=== PATIENT | female | born 1970 | race Two or more races ===

== ENCOUNTER 2023-08-09 17:37 | Emergency (ER) | payer OTHER ==
--- NOTE | 2023-08-09 19:22 | ED ---
General Adult HPI - General Source: patient, RN notes reviewed <Yulia Hannah - Last Filed: 08/09/23 19:19> <Renetta Corea - Last Filed: 08/09/23 20:36> - General Stated complaint: nose injury Time Seen by Provider: 08/09/23 19:19 - History of Present Illness Initial comments: 53 year old female presents to the emergency department for chief complaint of dog bite. Patient states that her friend just got a dog and she bent over to grab the toy. The dog bit her on the nose. The dog had a rabies vaccine in January 2022. Patient has a laceration across the bridge of her nose. (Yulia Hannah) 53-year-old female presenting with chief complaint of dog bite. Patient states that her friend discovered a new dog, the dog bit her on the nose this evening. There is a 3 cm laceration across the bridge of the nose. Bleeding is well- controlled at this time. The dog is up-to-date on vaccinations. Patient states that her last tetanus shot was over 10 years ago. No other injuries. (Renetta Corea) - Related Data Previous Rx's Medication Instructions Recorded Amoxic-Pot Clav 875-125Mg 1 tab PO Q12HR 10 Days #20 tab 08/09/23 [Augmentin 875-125] Allergies Allergy/AdvReac Type Severity Reaction Status Date / Time No Known Allergies Allergy Verified 08/09/23 19:23 Review of Systems ROS Other: All systems not noted in ROS Statement are negative. <Yulia Hannah - Last Filed: 08/09/23 19:19> ROS Other: All systems not noted in ROS Statement are negative. <Renetta Corea - Last Filed: 08/09/23 20:36> ROS Statement: Those systems with pertinent positive or pertinent negative responses have been documented in the HPI. General Exam <Yulia Hannah - Last Filed: 08/09/23 19:19> Limitations: no limitations General appearance: alert, in no apparent distress Head exam: Present: normocephalic Eye exam: Present: normal appearance, EOMI Neck exam: Present: normal inspection, full ROM Respiratory exam: Absent: respiratory distress Neurological exam: Present: alert, oriented X3 Psychiatric exam: Present: normal affect, normal mood Expanded Type of lesion: Present: laceration (3 cm laceration across the bridge of the nose secondary to dog bite) <Renetta Corea - Last Filed: 08/09/23 20:36> - General Exam Comments Initial Comments: Visual Physical Exam Vital signs reviewed General: Well-appearing, nontoxic, no acute distress. Head: Normocephalic, atraumatic Eyes: PERRLA, EOMI ENT: Airway patent Chest: Nonlabored breathing Skin: No visual rash, normal skin tone Neuro: Alert and oriented 3 Musculoskeletal: No gross abnormalities (Yulia Hannah) Course Vital Signs 08/09/23 19:20 Temperature 98.1 F Pulse Rate 67 Respiratory 18 Rate Blood Pressure 153/85 O2 Sat by Pulse 99 Oximetry Procedures - Laceration Laceration #1 Consent Obtained: verbal consent Indication: laceration Site: face Size (cm): 3 Description: linear Depth: simple, single layer Anesthetic Used: lidocaine 1%, without epi Anesthesia Technique: local infiltration Pre-repair: wound explored, irrigated extensively Type of Sutures: nylon Size of Sutures: 5-0 Number of Sutures: 3 Technique: simple, interrupted Patient Tolerated Procedure: well <Renetta Corea - Last Filed: 08/09/23 20:36> Medical Decision Making <Yulia Hannah - Last Filed: 08/09/23 19:19> <Renetta Corea - Last Filed: 08/09/23 20:36> - Medical Decision Making I preformed the quick note portion of this chart. Electronically signed by Yulia Hannah PA-C. (Yulia Hannah) Was pt. sent in by a medical professional or institution (LIZZY Martin, FISHING GUIDE, urgent care, hospital, or prison...) When possible be specific @ -No Did you speak to anyone other than the patient for history (EMS, parent, family, police, friend...)? What history was obtained from this source @ -No Did you review nursing and triage notes (agree or disagree)? Why? @ -I reviewed and agree with nursing and triage notes Were old charts reviewed (outside hosp., previous admission, EMS record, old EKG, old radiological studies, urgent care reports/EKG's, prison records)? Report findings @ -No old charts were reviewed Differential Diagnosis (chest pain, altered mental status, abdominal pain women, abdominal pain men, vaginal bleeding, weakness, fever, dyspnea, syncope, headache, dizziness, GI bleed, back pain, seizure, CVA, palpatations, mental health, musculoskeletal)? @ -not applicable EKG interpreted by me (3pts min.). @ -As above X-rays interpreted by me (1pt min.). @ -None done CT interpreted by me (1pt min.). @ -None done U/S interpreted by me (1pt. min.). @ -None done What testing was considered but not performed or refused? (CT, X-rays, U/S, labs)? Why? @ -None What meds were considered but not given or refused? Why? @ -None Did you discuss the management of the patient with other professionals (prof hdz i.eElizabet Martin, PA, FISHING GUIDE, lab, RT, psych nurse, social sciences instructor, juvenile justice officer, teacher, aoc [employer] operations staff officer, comp field case manager)? Give summary @ -No Was smoking cessation discussed for >3mins.? @ -No Was critical care preformed (if so, how long)? @ -No Were there social determinants of health that impacted care today? How? (Homelessness, low income, unemployed, alcoholism, drug addiction, transportation, low edu. Level, literacy, decrease access to med. care, senior living, rehab)? @ -No Was there de-escalation of care discussed even if they declined (Discuss DNR or withdrawal of care, Hospice)? DNR status @ -No What co-morbidities impacted this encounter? (DM, HTN, Smoking, COPD, CAD, Cancer, CVA, ARF, Chemo, Hep., AIDS, mental health diagnosis, sleep apnea, morbid obesity)? @ -None Was patient admitted / discharged? Hospital course, mention meds given and route, prescriptions, significant lab abnormalities, going to OR and other pertinent info. @ -53-year-old female presenting with chief complaint of dog bite to the nose. There is a 3 cm laceration across the bridge of the nose. Her tetanus is updated today. Laceration is repaired, see procedure note for details. She started on Augmentin. Educated on wound care and signs of infection. Follow-up with PCP. Report back to ER with any new or worsening symptoms. Discussed return parameters and answered all questions. Patient conveyed verbal understanding and agreed to the plan. I discussed this case in detail with my attending Dr. Naranjo Undiagnosed new problem with uncertain prognosis? @ -No Drug Therapy requiring intensive monitoring for toxicity (Heparin, Nitro, Insulin, Cardizem)? @ -No Were any procedures done? @ -Laceration repair Diagnosis/symptom? @ - dog bite Acute, or Chronic, or Acute on Chronic? @ -Acute Uncomplicated (without systemic symptoms) or Complicated (systemic symptoms)? @ -Uncomplicated Side effects of treatment? @ -No Exacerbation, Progression, or Severe Exacerbation? @ -No Poses a threat to life or bodily function? How? (Chest pain, [place], NH, pneumonia, PE, COPD, DKA, ARF, appy, cholecystitis, CVA, Diverticulitis, Homicidal, Suicidal, threat to staff... and all critical care pts) @ -No (Renetta Corea) Disposition <Yulia Hannah - Last Filed: 08/09/23 19:19> Is patient prescribed a controlled substance at d/c from ED?: No Time of Disposition: 20:02 <Renetta Corea - Last Filed: 08/09/23 20:36> Clinical Impression: Dog bite, Facial laceration Disposition: HOME SELF-CARE Condition: Good Instructions (If sedation given, give patient instructions): Animal Bite (ED), Facial Laceration (ED) Additional Instructions: Follow-up with PCP. Report back to ER with any new or worsening symptoms. Keep the wound clean and dry. Wash daily with soap and water. Monitor for any signs of infection, including but not limited to redness, swelling, warmth, tenderness, discharge. Sutures may be removed in 3-5 days. Take antibiotic as prescribed. Prescriptions: Amoxic-Pot Clav 875-125Mg [Augmentin 875-125] 1 tab PO Q12HR 10 Days #20 tab Referrals: None,Stated [Primary Care Provider] - 1-2 days [facility] [NON-STAFF] - 1-2 days
[2023-08-09] MEDS ORDERED: DIPH,PERTUS(ACELL)TETVAC-LF 0.5 ML VIAL IM ONE (19:31)
[2023-08-09] MEDS ORDERED: LIDOCAINE 1% INJ 10MG/ML (20 ML MDV) SQ ONE (19:32)
[2023-08-09 19:38] VITALS: BP 153/85; PULSE 67; RESP 18; TEMP 98.1
[2023-08-09] MEDS ORDERED: AMOXIC-POT CLAV 875-125MG 1 EACH TAB PO STA (20:03)
== END 2023-08-09 20:22 | disposition home or self-care (01) ==
LOC: EC 17:37
DX: S01.21XA Laceration without foreign body of nose, initial encounter (principal); Z23 Encounter for immunization; W54.0XXA Bitten by dog, initial encounter
CPT/HCPCS: 90715; 12013; 90471; 99283; J2001